=== PATIENT | female | born 1980 | race American Indian/Alaskan Native ===

== ENCOUNTER 2016-07-11 11:06 | Emergency (ER) | payer OTHER, SELFPAY ==
[2016-07-11 11:29] VITALS: BP 118/80
[2016-07-11 11:58] LABS: Bacteria,Urine 2+ /HPF (Negative); Bilirubin,Urine NEG (Negative); Blood,Urine LG (Negative); Ketones,Urine NEG (Negative); Leukocyte Esterase,Urine LG (Negative); Nitrite,Urine POS (Negative); Urobilinogen,Urine < 2.0 mg/dL (<2.0)
[2016-07-11 12:00] LABS: RBC,Urine > 182.0 /HPF (0.0-6.0); WBC,Urine > 182.0 /HPF (0.0-6.0)
[2016-07-11] MEDS ORDERED: ROCEPHIN IM ONE (12:49)
[2016-07-11] MEDS ORDERED: XYLOCAINE 1% MPF 5 mL INFILTRATI ONE (12:49)
[2016-07-11] MEDS ORDERED: ZITHROMAX PO ONE (12:49)
[2016-07-11] MEDS ORDERED: MOTRIN PO ONE (12:49)
--- NOTE | 2016-07-11 12:52 | Emergency Department Report ---
HPI - General Chief Complaint: Urogenital-Female Time Seen by Provider: 07/11/16 12:19 - HPI HPI: She is a 35-year-old female presents to ED complaining of burning with urination and mild low pelvic cramping 1 day. Patient states she started having burning type pain with urination yesterday. Patient denies vaginal discharge or bleeding. Patient states she had unprotected intercourse on Sunday with partner of unknown status. Patient states that since her period as 06/23/2016 and was regular. Patient denies contraceptive use. Or any other medication use other than blood pressure meds. Patient denies fevers/chills/nausea/vomiting/abdominal pain/chest pain shortness of breath or any other problems. ED Past Medical Hx - Past Medical History Previous Medical History?: Yes Hx Hypertension: Yes Hx GERD: Yes Hx Asthma: Yes (bronchitis) Additional medical history: reflux, recurrent bronchitis - Surgical History Past Surgical History?: No - Social History Smoking Status: Current Every Day Smoker Substance Use Type: Alcohol, Marijuana, Prescribed - Medications Home Medications: Home Medications Medication Instructions Recorded Confirmed Last Taken Type Lisinopril [Zestril TAB] 20 mg PO QDAY #30 tablet 08/09/15 01/19/16 Unknown Rx oxyCODONE /ACETAMINOPHEN [Percocet 1 tab PO Q8HR PRN #20 tablet 01/27/16 Unknown Rx 5/325] Ibuprofen [Motrin 800 MG tab] 800 mg PO TID #20 tablet 07/11/16 Unknown Rx metroNIDAZOLE [Flagyl] 500 mg PO ONCE #4 tab 07/11/16 Unknown Rx ED Review of Systems ROS: Stated complaint: BURNING/SPOTTING/CRAMPING IN VAG AREA Other details as noted in HPI Constitutional: denies: chills, fever Eyes: denies: eye pain, eye discharge, vision change ENT: denies: ear pain, throat pain, dental pain, hearing loss Respiratory: denies: cough, shortness of breath, wheezing Cardiovascular: denies: chest pain, palpitations Endocrine: no symptoms reported Gastrointestinal: denies: abdominal pain, nausea, vomiting, diarrhea Genitourinary: denies: urgency, dysuria, frequency, hematuria, discharge Musculoskeletal: denies: back pain, joint swelling, arthralgia Skin: denies: rash, lesions Neurological: denies: headache, weakness, numbness, paresthesias, confusion Psychiatric: denies: anxiety, depression Hematological/Lymphatic: denies: easy bleeding, easy bruising Physical Exam - Physical Exam Vital Signs: Vital Signs 07/11/16 11:26 Temperature 98.4 F Pulse Rate 83 Respiratory 20 Rate Blood Pressure 118/80 O2 Sat by Pulse 98 Oximetry Physical Exam: GENERAL: Alert and oriented x3, no apparent distress, Normal Gait, atraumatic. HEAD: Head is normocephalic and a-traumatic. EYES: Extra ocular muscles are intact. Pupils are equal, round, and reactive to light and accommodation. LUNGS: Symetrical with respiration, No wheezing, no rales or crackles, CTAB. HEART: S1, S2 present, regular rate and rhythm without murmur, no rubs, no gallops. ABDOMEN: No organomegaly was noted,Positive bowel sounds, soft, and non- distended. Nontender to palpation on all Quadrants, NO CVA tenderness. GENITOURINARY: External genitalia without erythema, exudate or discharge. Vaginal vault is without discharge. Cervix is of normal color without lesion. Cervical os is closed. No bleeding noted. Uterus is noted to be of normal size and nontender. No cervical motion tenderness. No masses are palpated. The adnexa are without masses or tenderness. NEUROLOGIC: No focal Deficit, Cranial nerves II through XII are grossly intact. PSYCHIATRIC: Mood is congruent with affect, denies suicidal or homicidal ideations. SKIN: Warm and dry, No lesions, No ulceration or induration present. ED Course Vital Signs 07/11/16 11:26 Temperature 98.4 F Pulse Rate 83 Respiratory 20 Rate Blood Pressure 118/80 O2 Sat by Pulse 98 Oximetry ED Medical Decision Making - Medical Decision Making 35-year-old female presents with urinary tract infection/STD exposure. ED course: Patient received Rocephin 250 mg IM, 1 g azithromycin. Urinalysis, urine , gonorrhea and chlamydia ordered. Urine test negative urinalysis shows elevated WBCs with RBCs, bacteria Findings suggest urinary tract infection or a STD. Patient was empirically treated and discussed findings with patient. Discussed the patient will follow up with her [facility] doctor. Discussed home medication for urinary tract infection and treatment for trichomoniasis. Vital signs are normal patient is in no acute distress. She apparently states she understands and will follow-up. Critical care attestation.: If time is entered above; I have spent that time in minutes in the direct care of this critically ill patient, excluding procedure time. ED Disposition Clinical Impression: Exposure to STD UTI (urinary tract infection) Qualifiers: Urinary tract infection type: acute cystitis Hematuria presence: with hematuria Qualified Code(s): N30.01 - Acute cystitis with hematuria Disposition: DISCHARGED TO HOME OR SELFCARE Is pt being admited?: No Does the pt Need Aspirin: No Condition: Stable Instructions: Sexually Transmitted Diseases (ED), Safe Sex (ED), Urinary Tract Infection in Women (ED), Dysuria (ED) Additional Instructions: Follow-up with her [facility] doctor for further STD testing. Particular medication as prescribed. If worsening symptoms return to ED. Prescriptions: Ibuprofen [Motrin 800 MG tab] 800 mg PO TID #20 tablet metroNIDAZOLE [Flagyl] 500 mg PO ONCE #4 tab Referrals: PRIMARY CAREMD [Primary Care Provider] - 3-5 Days FELIX ORTIZ MD [Referring] - 3-5 Days [facility] [Outside] - 3-5 Days [facility] [Outside] - 3-5 Days [facility] [Outside] - 3-5 Days Forms: Work/School Release Form(ED) Time of Disposition: 12:51
== END 2016-07-11 13:35 | disposition home or self-care (01) ==
LOC: ED 11:06
DX: N30.01 Acute cystitis with hematuria (principal); Z20.2 Contact with and (suspected) exposure to infections with a predominantly sexual mode of transmission; I10 Essential (primary) hypertension; K21.9 Gastro-esophageal reflux disease without esophagitis; J45.909 Unspecified asthma, uncomplicated; F17.200 Nicotine dependence, unspecified, uncomplicated
CPT/HCPCS: 81001; 81025; 96372; 99284; J0696

== ENCOUNTER 2016-11-17 08:08 | Outpatient (CLI) | payer OTHER ==
[2016-11-17 09:41] LABS: Blood Urea Nitrogen 22 mg/dL (7-17)
[2016-11-17] MEDS ORDERED: NACL ONE (10:52)
--- NOTE | 2016-11-17 12:59 | Cat Scan Report ---
CT ABDOMEN AND PELVIS WITH CONTRAST INDICATION: LUQ abdominal pain. COMPARISON: 01/20/2016. FINDINGS: Abdomen and pelvis CT performed following oral contrast and intravenous administration of 100 cc of Omnipaque 300. LUNG BASES: Nonspecific distal esophageal wall prominence/thickening, not excluded for gastroesophageal reflux and/or hiatal hernia, amongst others. Interval resolution of bibasilar atelectasis and left pleural effusion. ABDOMEN: Significant interval improvement of pancreatitis related changes in the upper abdomen with an approximately 5 cm hypodense pseudocyst centered at the pancreatic neck now remaining, axial image 102, series 2. Small 0.9 cm hypodensity towards the pancreatic tail also questioned, axial image 92. Few small peripancreatic lymph nodes with the largest gastrohepatic node approximately 1.1 x 0.7 cm, axial image 70, series 2. No abnormal pancreatic duct dilation. Liver, spleen, gallbladder, adrenals, aorta, IVC and the left kidney within normal limits. Moderate right hydroureteronephrosis now seen, extending into the pelvis. Left upper quadrant/perigastric collaterals. Opacified GI tract nonobstructive. Mild colonic stool admixed with contrast. Small midline ventral hernia noted approximately 3.5 cm above the umbilicus, containing fat and now also few small mesenteric collateral vessels as on axial image 137, series 2 with a transverse neck of 0.9 cm. PELVIS: Nonopacified right distal ureter difficult to accurately follow, though felt compressed about the right adnexa/ovary that measures about 4.5 x 3.1 cm, axial image 50, series 4 with an approximately 2 cm intrinsic possible corpus luteum. Rectosigmoid containing stool also noted coursing adjacent in this region. Uterus, left adnexa/ovary and the urinary bladder within normal limits. No free fluid or significant adenopathy. Stable sclerosis along iliac aspect of left SI joint. CONCLUSION: 1. New moderate right hydroureteronephrosis with nonopacified right distal ureter felt compressed in the lower right hemipelvis, as detailed above. 2. Resolving post pancreatitis changes with pancreatic neck/proximal body predominant pseudocyst now remaining, as above. 3. Various other incidental findings, including distal esophageal prominence/thickening, small supraumbilical midline ventral hernia, interval clearing of the lung bases and resolution of ascites, amongst others, as above. Thank you for the opportunity to participate in this patient's care.
== END 2016-11-17 08:09 | disposition home or self-care (01) ==
LOC: CT 08:08
PROVIDERS: ATTEND Internal Medicine Gastroenterology
DX: K86.2 Cyst of pancreas (principal); K85.90 Acute pancreatitis without necrosis or infection, unspecified; N13.30 Unspecified hydronephrosis; K43.9 Ventral hernia without obstruction or gangrene; I10 Essential (primary) hypertension; J45.909 Unspecified asthma, uncomplicated; F17.200 Nicotine dependence, unspecified, uncomplicated
CPT/HCPCS: 36415; 74177; 82565; 84520; Q9967

== ENCOUNTER 2016-12-12 02:56 | Emergency (ER) | payer OTHER ==
[2016-12-12 03:24] VITALS: BP 154/88
--- NOTE | 2016-12-12 04:36 | Emergency Department Report ---
ED Female HPI - General Chief complaint: Urogenital-Female Stated complaint: BURNING & SPOTTING FROM VAGINA Time Seen by Provider: 12/12/16 04:28 Source: patient, family Mode of arrival: Ambulatory Limitations: No Limitations - History of Present Illness Initial comments: This is a 35-year-old female nontoxic, well nourished in appearance, no acute signs of distress presents to the ED complaining of dysuria 2 days. Patient stated at the end of her urine she developed slight bleeding at the end of the urinary stream. Patient denies vaginal discharge. Patient denies any painful urination. Patient is a burning sensation when she urinates. Patient denies any fever, chills, back pain, nausea, vomiting, abdominal pain, pelvic pain, stiff neck, headache, chest pain or shortness breath. Patient denies any allergies. Past medical history includes asthma, GERD, and hypertension. MD Complaint: dysuria -: Gradual, days(s) (2) Radiation: non-radiating Severity: mild Severity scale (0 -10): 5 Quality: burning Consistency: constant Improves with: none Worsens with: urination Are you Now?: No Last Menstrual Period: 11/19/16 EDC: 08/26/17 Associated Symptoms: dysuria, hematuria. denies: vaginal discharge, vaginal bleeding, abdominal pain, nausea/vomiting, fever/chills, headaches, loss of appetite, rash, seizure, shortness of breath, syncope, weakness - Related Data Sexually active: No Previous Rx's Medication Instructions Recorded Last Taken Type Lisinopril [Zestril TAB] 20 mg PO QDAY #30 tablet 08/09/15 Unknown Rx oxyCODONE /ACETAMINOPHEN [Percocet 1 tab PO Q8HR PRN #20 tablet 01/27/16 Unknown Rx 5/325] Ibuprofen [Motrin 800 MG tab] 800 mg PO TID #20 tablet 07/11/16 Unknown Rx metroNIDAZOLE [Flagyl] 500 mg PO ONCE #4 tab 07/11/16 Unknown Rx Sulfamethoxazole/Trimethoprim 1 each PO BID #14 tablet 12/12/16 Unknown Rx [Bactrim DS TAB] Allergies Allergy/AdvReac Type Severity Reaction Status Date / Time No Known Allergies Allergy Verified 01/23/14 08:59 ED Review of Systems ROS: Stated complaint: BURNING & SPOTTING FROM VAGINA Other details as noted in HPI Constitutional: denies: chills, fever Eyes: denies: eye pain, eye discharge, vision change ENT: denies: ear pain, throat pain Respiratory: denies: cough, shortness of breath, wheezing Cardiovascular: denies: chest pain, palpitations Endocrine: no symptoms reported Gastrointestinal: denies: abdominal pain, nausea, diarrhea Genitourinary: dysuria. denies: urgency, discharge Musculoskeletal: denies: back pain, joint swelling, arthralgia Skin: denies: rash, lesions Neurological: denies: headache, weakness, paresthesias Psychiatric: denies: anxiety, depression Hematological/Lymphatic: denies: easy bleeding, easy bruising ED Past Medical Hx - Past Medical History Hx Hypertension: Yes Hx GERD: Yes Hx Asthma: Yes (bronchitis) Additional medical history: reflux, recurrent bronchitis - Surgical History Past Surgical History?: No - Social History Smoking Status: Current Some Day Smoker Substance Use Type: None - Medications Home Medications: Home Medications Medication Instructions Recorded Confirmed Last Taken Type Lisinopril [Zestril TAB] 20 mg PO QDAY #30 tablet 08/09/15 01/19/16 Unknown Rx oxyCODONE /ACETAMINOPHEN [Percocet 1 tab PO Q8HR PRN #20 tablet 01/27/16 Unknown Rx 5/325] Ibuprofen [Motrin 800 MG tab] 800 mg PO TID #20 tablet 07/11/16 Unknown Rx metroNIDAZOLE [Flagyl] 500 mg PO ONCE #4 tab 07/11/16 Unknown Rx Sulfamethoxazole/Trimethoprim 1 each PO BID #14 tablet 12/12/16 Unknown Rx [Bactrim DS TAB] ED Physical Exam - General Limitations: No Limitations General appearance: alert, in no apparent distress - Head Head exam: Present: atraumatic, normocephalic, normal inspection - Eye Eye exam: Present: normal appearance, PERRL, EOMI. Absent: scleral icterus, conjunctival injection, nystagmus, periorbital swelling, periorbital tenderness Pupils: Present: normal accommodation - ENT ENT exam: Present: normal exam, normal orophraynx, mucous membranes moist, TM's normal bilaterally, normal external ear exam - Neck Neck exam: Present: normal inspection, full ROM. Absent: tenderness, meningismus, lymphadenopathy, thyromegaly - Respiratory Respiratory exam: Present: normal lung sounds bilaterally. Absent: respiratory distress, wheezes, rales, rhonchi, stridor, chest wall tenderness, accessory muscle use, decreased breath sounds, prolonged expiratory - Cardiovascular Cardiovascular Exam: Present: regular rate, normal rhythm, normal heart sounds. Absent: bradycardia, tachycardia, irregular rhythm, systolic murmur, diastolic murmur, rubs, gallop - GI/Abdominal GI/Abdominal exam: Present: soft, normal bowel sounds. Absent: distended, tenderness, guarding, rebound, rigid, diminished bowel sounds - Rectal Rectal exam: Present: deferred - Extremities Exam Extremities exam: Present: normal inspection, full ROM, normal capillary refill. Absent: tenderness, pedal edema, joint swelling, calf tenderness - Back Exam Back exam: Present: normal inspection, full ROM. Absent: tenderness, CVA tenderness (R), CVA tenderness (L), muscle spasm, paraspinal tenderness, vertebral tenderness, rash noted - Neurological Exam Neurological exam: Present: alert, oriented X3, CN II-XII intact, normal gait, reflexes normal - Psychiatric Psychiatric exam: Present: normal affect, normal mood - Skin Skin exam: Present: warm, dry, intact, normal color. Absent: rash ED Course Vital Signs 12/12/16 03:13 Temperature 98.9 F Pulse Rate 70 Respiratory 16 Rate Blood Pressure 154/88 Blood Pressure 154/88 [Left] O2 Sat by Pulse 100 Oximetry - Reevaluation(s) Reevaluation #1: 12/12/16 04:34 Patient is speaking in full sentences with no signs of distress noted. Critical care attestation.: If time is entered above; I have spent that time in minutes in the direct care of this critically ill patient, excluding procedure time. ED Disposition Clinical Impression: UTI (urinary tract infection) Qualifiers: Urinary tract infection type: site unspecified Hematuria presence: with hematuria Qualified Code(s): N39.0 - Urinary tract infection, site not specified Disposition: - TO HOME OR SELFCARE Is pt being admited?: No Does the pt Need Aspirin: No Condition: Stable Instructions: Sulfamethoxazole/Trimethoprim (By mouth), Urinary Tract Infection in Women (ED) Additional Instructions: Follow-up with a primary care doctor in 3-5 days or if symptoms worsen and continue return to emergency room as soon as possible possible. Prescriptions: Sulfamethoxazole/Trimethoprim [Bactrim DS TAB] 1 each PO BID #14 tablet Referrals: SANDRA RODRIGUEZ MD [Primary Care Provider] - 3-5 Days BRYANT DSOUZA MD [Staff Physician] - 3-5 Days [facility] [Outside] - 3-5 Days [facility] [Outside] - 3-5 Days Forms: Work/School Release Form(ED)
[2016-12-12 04:38] LABS: Bilirubin,Urine NEG (Negative); Blood,Urine LG (Negative); Ketones,Urine NEG (Negative); Leukocyte Esterase,Urine LG (Negative); Nitrite,Urine NEG (Negative); RBC,Urine > 182.0 /HPF (0.0-6.0); Urobilinogen,Urine < 2.0 mg/dL (<2.0)
== END 2016-12-12 05:04 | disposition home or self-care (01) ==
LOC: ED 02:56
DX: N39.0 Urinary tract infection, site not specified (principal); I10 Essential (primary) hypertension; K21.9 Gastro-esophageal reflux disease without esophagitis; J45.909 Unspecified asthma, uncomplicated; F17.200 Nicotine dependence, unspecified, uncomplicated
CPT/HCPCS: 81001; 81025; 99282

== ENCOUNTER 2016-12-25 19:06 | Emergency (ER) | payer OTHER ==
[2016-12-25 19:21] VITALS: BP 134/91
[2016-12-25 20:17] LABS: Anion Gap 17 mmol/L; BUN/Creatinine Ratio 24; Blood Urea Nitrogen 26 mg/dL (7-17); Calcium 9.4 mg/dL (8.4-10.2); Carbon Dioxide 25 mmol/L (22-30); Chloride 100.5 mmol/L (98-107); Glucose 80 mg/dL (65-100); Potassium 4.2 mmol/L (3.6-5.0); Sodium 138 mmol/L (137-145)
[2016-12-25 20:31] LABS: Basophils % (Auto) 1.1 % (0.0-1.8); Eosinophils % (Auto) 2.1 % (0.0-4.3); Hematocrit 34.8 % (30.3-42.9); Hemoglobin 11.5 gm/dl (10.1-14.3); Mean Corpuscular HGB Conc 33 % (30-34); Mean Corpuscular Hemoglobin 33 pg (28-32); Mean Corpuscular Volume 101 fl (79-97); Platelet Count 261 K/mm3 (140-440); Red Blood Count 3.45 M/mm3 (3.65-5.03); Red Cell Distribution Width 12.9 % (13.2-15.2); White Blood Count 7.6 K/mm3 (4.5-11.0)
[2016-12-25 22:06] LABS: Bilirubin,Urine NEG (Negative); Blood,Urine NEG (Negative); Ketones,Urine NEG (Negative); Leukocyte Esterase,Urine NEG (Negative); Mucus,Urine FEW /HPF; Nitrite,Urine NEG (Negative); Protein,Urine <15 mg/dL mg/dL (Negative); Urobilinogen,Urine < 2.0 mg/dL (<2.0); WBC,Urine < 1.0 /HPF (0.0-6.0)
--- NOTE | 2016-12-26 07:44 | XRay Report ---
ROUTINE CHEST, TWO VIEWS: HISTORY: Short of breath. The trachea, heart, mediastinal contour, lung petty and bony thorax are unremarkable. IMPRESSION: Unremarkable chest x-ray.
== END 2016-12-25 21:48 | disposition left against medical advice (07) ==
LOC: ED 19:06
DX: R07.9 Chest pain, unspecified (principal); Z53.21 Procedure and treatment not carried out due to patient leaving prior to being seen by health care provider
CPT/HCPCS: 36415; 71020; 80048; 81001; 84484; 84703; 85025; 93005; 93010

== ENCOUNTER 2017-01-27 21:36 | Emergency (ER) | payer OTHER ==
[2017-01-27 22:20] LABS: Basophils % (Auto) 0.7 % (0.0-1.8); Eosinophils % (Auto) 2.8 % (0.0-4.3); Hematocrit 35.5 % (30.3-42.9); Hemoglobin 11.7 gm/dl (10.1-14.3); Mean Corpuscular HGB Conc 33 % (30-34); Mean Corpuscular Hemoglobin 33 pg (28-32); Mean Corpuscular Volume 100 fl (79-97); Platelet Count 245 K/mm3 (140-440); Red Blood Count 3.54 M/mm3 (3.65-5.03); Red Cell Distribution Width 13.1 % (13.2-15.2); White Blood Count 8.7 K/mm3 (4.5-11.0)
[2017-01-27 22:32] LABS: Alanine Aminotransferase 78 units/L (7-56); Albumin 4.1 g/dL (3.9-5); Albumin/Globulin Ratio 1.1 %; Alkaline Phosphatase 98 units/L (35-129); Anion Gap 18 mmol/L; BUN/Creatinine Ratio 16; Blood Urea Nitrogen 14 mg/dL (7-17); Calcium 9.2 mg/dL (8.4-10.2); Carbon Dioxide 27 mmol/L (22-30); Chloride 93.4 mmol/L (98-107); Glucose 120 mg/dL (65-100); Potassium 3.1 mmol/L (3.6-5.0); Sodium 135 mmol/L (137-145); Total Protein 7.7 g/dL (6.3-8.2)
[2017-01-27 22:43] LABS: Lipase 579 units/L (13-60)
[2017-01-27 22:55] LABS: Bilirubin,Urine NEG (Negative); Blood,Urine NEG (Negative); Ketones,Urine NEG (Negative); Leukocyte Esterase,Urine NEG (Negative); Nitrite,Urine NEG (Negative)
[2017-01-27 23:01] LABS: Mucus,Urine FEW /HPF
--- NOTE | 2017-01-28 06:06 | Cat Scan Report ---
FINAL REPORT EXAM: CT ABDOMEN PELVIS WO CON HISTORY: flank pain blood in urine TECHNIQUE: CT images obtained through the Abdomen and Pelvis without contrast. Transaxial,coronal and sagittal reformats are provided. PRIORS: 01/19/2016, MRI 01/20/2016 FINDINGS: Imaged intrathoracic contents are unremarkable. There is edema and stranding surrounding the pancreatic head and uncinate. Within the proximal pancreatic body on axial series 3, image 50 there is a 5.5 x 4.3 x 5.8 Centimeter rim enhancing fluid-filled structure. Remainder of the pancreatic parenchyma is uniformly enhancing. The liver, gallbladder, spleen and adrenal glands are unremarkable. There is moderate right hydroureteronephrosis with right periureteral stranding extending into the area of pancreatic inflammation an and transitioning to normal caliber ureter more distally. No nephrolithiasis. No left-sided hydroureteronephrosis. There is layering retroperitoneal and right lower quadrant fluid. Hollow enteric organs are normal in course and caliber. Appendix is normal. No pneumoperitoneum. Aorta is normal in course and caliber. Superficial soft tissues are unremarkable. No acute or aggressive appearing skeletal findings. IMPRESSION: Inflammatory stranding and edema surrounding the pancreatic head and uncinate surround the right ureter, which is dilated proximally and results in moderate right hydronephrosis. No obstructing nephrolithiasis. A focal fluid collection within the pancreatic body measures 5.5 x 4.3 x 5.8 cm. Differential diagnosis includes pancreatic abscess versus pseudocyst from prior pancreatitis demonstrated on [address] Canales discussed findings with Dr. Cuevas at 0458 central Time on 01/28/2017 immediately following the examination.
[2017-01-28 06:37] VITALS: BP 123/90
[2017-01-28] MEDS ORDERED: SUBLIMAZE IV ONE (07:08)
[2017-01-28] MEDS ORDERED: ZOFRAN IV ONE (07:08)
[2017-01-28] MEDS ORDERED: NACL 0.9% 1000 ML 1,000 ML IV ONE (07:08)
--- NOTE | 2017-01-28 07:13 | Emergency Department Report ---
HPI - General Chief Complaint: Abdominal Pain Time Seen by Provider: 01/28/17 06:58 - HPI HPI: Room 24 The patient is a 36-year-old female presenting with chief complaint of abdominal pain. Patient states yesterday she developed sharp umbilical abdominal pain. The patient states last night after eating food she again developed sharp pain in the midepigastric region radiating to her back. Patient is to nausea but denies vomiting, diarrhea or fever. The patient gives her pain a score of 10/10 Location: Abdomen Duration: Since yesterday Quality: Sharp Severity:10/10 Modifying factors: [see above] Context: [see above] Mode of transportation: Unknown ED Past Medical Hx - Past Medical History Hx Hypertension: Yes Hx GERD: Yes Hx Asthma: Yes (bronchitis) Additional medical history: reflux, recurrent bronchitis, pancreatitis (2016) - Surgical History Past Surgical History?: No - Family History Family history: no significant - Social History Smoking Status: Current Some Day Smoker Substance Use Type: None (denies illicit drug use), Alcohol (occasional) - Medications Home Medications: Home Medications Medication Instructions Recorded Confirmed Last Taken Type Lisinopril [Zestril TAB] 20 mg PO QDAY #30 tablet 08/09/15 01/19/16 Unknown Rx oxyCODONE /ACETAMINOPHEN [Percocet 1 tab PO Q8HR PRN #20 tablet 01/27/16 Unknown Rx 5/325] Ibuprofen [Motrin 800 MG tab] 800 mg PO TID #20 tablet 07/11/16 Unknown Rx metroNIDAZOLE [Flagyl] 500 mg PO ONCE #4 tab 07/11/16 Unknown Rx Sulfamethoxazole/Trimethoprim 1 each PO BID #14 tablet 12/12/16 Unknown Rx [Bactrim DS TAB] ED Review of Systems ROS: Stated complaint: ABD AND LOWER BACK PAIN Other details as noted in HPI Comment: All other systems reviewed and negative Constitutional: denies: fever Eyes: denies: eye pain, eye discharge, vision change ENT: denies: ear pain, throat pain Respiratory: denies: cough, shortness of breath, wheezing Cardiovascular: denies: chest pain, palpitations Endocrine: no symptoms reported Gastrointestinal: abdominal pain, nausea. denies: vomiting, diarrhea Genitourinary: denies: urgency, dysuria, discharge Musculoskeletal: back pain. denies: joint swelling, arthralgia Skin: denies: rash, lesions Neurological: denies: headache, weakness, paresthesias Psychiatric: denies: anxiety, depression Hematological/Lymphatic: denies: easy bleeding, easy bruising Physical Exam - Physical Exam Vital Signs: Vital Signs 01/27/17 01/28/17 01/28/17 21:45 04:48 06:20 Temperature 99 F 98.2 F Pulse Rate 93 H 85 96 H Respiratory 16 18 Rate Blood Pressure 138/72 124/89 O2 Sat by Pulse 99 100 Oximetry 01/28/17 01/28/17 01/28/17 06:21 06:22 06:23 Temperature Pulse Rate 78 76 84 Respiratory 25 H 19 17 Rate Blood Pressure 113/88 113/88 O2 Sat by Pulse 99 99 Oximetry 01/28/17 01/28/17 01/28/17 06:25 06:27 06:29 Temperature Pulse Rate 74 70 72 Respiratory 11 L 11 L 12 Rate Blood Pressure 113/88 113/88 113/88 O2 Sat by Pulse 99 98 97 Oximetry 01/28/17 01/28/17 01/28/17 06:30 06:31 06:33 Temperature Pulse Rate 76 74 75 Respiratory 13 14 12 Rate Blood Pressure 123/90 123/90 123/90 O2 Sat by Pulse 97 99 97 Oximetry 01/28/17 01/28/17 06:37 06:49 Temperature 98.3 F Pulse Rate Respiratory 18 Rate Blood Pressure O2 Sat by Pulse 98 Oximetry Physical Exam: GENERAL: The patient is well-developed well-nourished female lying on stretcher not appearing to be in acute distress. [] HEENT: Normocephalic. Atraumatic. Extraocular motions are intact. Patient has moist mucous membranes. NECK: Supple. Trachea midline CHEST/LUNGS: Clear to auscultation. There is no respiratory distress noted. HEART/CARDIOVASCULAR: Regular. There is no tachycardia. There is no gallop rub or murmur. ABDOMEN: Abdomen is soft, with tenderness to palpation in the midepigastric and right upper quadrant. Patient has normal bowel sounds. There is no abdominal distention. SKIN: There is no rash. There is no edema. There is no diaphoresis. NEURO: The patient is awake, alert, and oriented. The patient is cooperative. The patient has normal speech MUSCULOSKELETAL: There is no evidence of acute injury. ED Course Vital Signs 01/27/17 01/28/17 01/28/17 21:45 04:48 06:20 Temperature 99 F 98.2 F Pulse Rate 93 H 85 96 H Respiratory 16 18 Rate Blood Pressure 138/72 124/89 O2 Sat by Pulse 99 100 Oximetry 01/28/17 01/28/17 01/28/17 06:21 06:22 06:23 Temperature Pulse Rate 78 76 84 Respiratory 25 H 19 17 Rate Blood Pressure 113/88 113/88 O2 Sat by Pulse 99 99 Oximetry 01/28/17 01/28/17 01/28/17 06:25 06:27 06:29 Temperature Pulse Rate 74 70 72 Respiratory 11 L 11 L 12 Rate Blood Pressure 113/88 113/88 113/88 O2 Sat by Pulse 99 98 97 Oximetry 01/28/17 01/28/17 01/28/17 06:30 06:31 06:33 Temperature Pulse Rate 76 74 75 Respiratory 13 14 12 Rate Blood Pressure 123/90 123/90 123/90 O2 Sat by Pulse 97 99 97 Oximetry 01/28/17 01/28/17 06:37 06:49 Temperature 98.3 F Pulse Rate Respiratory 18 Rate Blood Pressure O2 Sat by Pulse 98 Oximetry ED Medical Decision Making - Lab Data Result diagrams: 01/27/17 21:57 01/27/17 21:57 Laboratory Tests 01/27/17 01/27/17 01/27/17 21:57 21:57 21:57 WBC 8.7 RBC 3.54 L Hgb 11.7 Hct 35.5 MCV 100 H MCH 33 H MCHC 33 RDW 13.1 L Plt Count 245 Lymph % (Auto) 21.2 Dale % (Auto) 6.2 Eos % (Auto) 2.8 Baso % (Auto) 0.7 Lymph # 1.8 Dale # 0.5 Eos # 0.2 Baso # 0.1 Seg Neutrophils % 69.1 Seg Neutrophils # 6.0 Sodium 135 L Potassium 3.1 L Chloride 93.4 L Carbon Dioxide 27 Anion Gap 18 BUN 14 Creatinine 0.9 Estimated GFR > 60 BUN/Creatinine Ratio 16 Glucose 120 H Calcium 9.2 Total Bilirubin 2.30 H AST 354 H ALT 78 H Alkaline Phosphatase 98 Total Protein 7.7 Albumin 4.1 Albumin/Globulin Ratio 1.1 Lipase 579 H HCG, Qual Negative Urine Color Urine Turbidity Urine pH Ur Specific [place] Urine Protein Urine Glucose (UA) Urine Ketones Urine Blood Urine Nitrite Urine Bilirubin Urine Urobilinogen Ur Leukocyte Esterase Urine WBC (Auto) Urine RBC (Auto) U Epithel Cells (Auto) Amorphous Crystals Urine Mucus 01/27/17 Unknown WBC RBC Hgb Hct MCV MCH MCHC RDW Plt Count Lymph % (Auto) Dale % (Auto) Eos % (Auto) Baso % (Auto) Lymph # Dale # Eos # Baso # Seg Neutrophils % Seg Neutrophils # Sodium Potassium Chloride Carbon Dioxide Anion Gap BUN Creatinine Estimated GFR BUN/Creatinine Ratio Glucose Calcium Total Bilirubin AST ALT Alkaline Phosphatase Total Protein Albumin Albumin/Globulin Ratio Lipase HCG, Qual Urine Color [place] Urine Turbidity Clear Urine pH 7.0 Ur Specific [place] 1.026 Urine Protein 30 mg/dl Urine Glucose (UA) Neg Urine Ketones Neg Urine Blood Neg Urine Nitrite Neg Urine Bilirubin Neg Urine Urobilinogen 2.0 Ur Leukocyte Esterase Neg Urine WBC (Auto) 1.0 Urine RBC (Auto) 5.0 U Epithel Cells (Auto) 8.0 Amorphous Crystals 1+ Urine Mucus Few - Radiology Data Radiology results: report reviewed (CT abdomen and pelvis), image reviewed (CT abdomen and pelvis) ADDENDUM FINAL REPORT EXAM: CT ABDOMEN PELVIS WO CON HISTORY: flank pain blood in urine TECHNIQUE: CT images obtained through the Abdomen and Pelvis without contrast. Transaxial,coronal and sagittal reformats are provided. PRIORS: 01/19/2016, MRI 01/20/2016 FINDINGS: Imaged intrathoracic contents are unremarkable. There is edema and stranding surrounding the pancreatic head and uncinate. Within the proximal pancreatic body on axial series 3, image 50 there is a 5.5 x 4.3 x 5.8 Centimeter rim enhancing fluid-filled structure. Remainder of the pancreatic parenchyma is uniformly enhancing. The liver, gallbladder, spleen and adrenal glands are unremarkable. There is moderate right hydroureteronephrosis with right periureteral stranding extending into the area of pancreatic inflammation an and transitioning to normal caliber ureter more distally. No nephrolithiasis. No left-sided hydroureteronephrosis. There is layering retroperitoneal and right lower quadrant fluid. Hollow enteric organs are normal in course and caliber. Appendix is normal. No pneumoperitoneum. Aorta is normal in course and caliber. Superficial soft tissues are unremarkable. No acute or aggressive appearing skeletal findings. IMPRESSION: Inflammatory stranding and edema surrounding the pancreatic head and uncinate surround the right ureter, which is dilated proximally and results in moderate right hydronephrosis. No obstructing nephrolithiasis. A focal fluid collection within the pancreatic body measures 5.5 x 4.3 x 5.8 cm. Differential diagnosis includes pancreatic abscess versus pseudocyst from prior pancreatitis demonstrated on [address] Al discussed findings with Dr. Cuevas at 0458 central Time on 01/28/2017 immediately following the examination. ADDENDUM FINAL REPORT Addendum: Within the findings of the original report, pancreatic fluid collection measuring up to 5.8 cm is referred to as rim enhancing, however no contrast was administered so the enhancement characteristics of this fluid collection cannot be determined. Additionally, there is a fat containing periumbilical/ventral hernia measuring up to approximately 12 millimeters at the neck, which was not described in the original report. No changes to the impression of the original report. I apologize for any inconvenience associated with this addendum. Thank you for the opportunity to participate in the care of this patient. Addendum Transcribed By: DAVID Addendum Dictated By: MORAIMA AL MD Addendum Electronically Authenticated By: MORAIMA AL MD Addendum Signed Date/Time: 01/28/17206 DD/ TD/TT: 01/28/17 FINAL REPORT EXAM: CT ABDOMEN PELVIS WO CON HISTORY: flank pain blood in urine TECHNIQUE: CT images obtained through the Abdomen and Pelvis without contrast. Transaxial,coronal and sagittal reformats are provided. PRIORS: 01/19/2016, MRI 01/20/2016 FINDINGS: Imaged intrathoracic contents are unremarkable. There is edema and stranding surrounding the pancreatic head and uncinate. Within the proximal pancreatic body on axial series 3, image 50 there is a 5.5 x 4.3 x 5.8 Centimeter rim enhancing fluid-filled structure. Remainder of the pancreatic parenchyma is uniformly enhancing. The liver, gallbladder, spleen and adrenal glands are unremarkable. There is moderate right hydroureteronephrosis with right periureteral stranding extending into the area of pancreatic inflammation an and transitioning to normal caliber ureter more distally. No nephrolithiasis. No left-sided hydroureteronephrosis. There is layering retroperitoneal and right lower quadrant fluid. Hollow enteric organs are normal in course and caliber. Appendix is normal. No pneumoperitoneum. Aorta is normal in course and caliber. Superficial soft tissues are unremarkable. No acute or aggressive appearing skeletal findings. IMPRESSION: Inflammatory stranding and edema surrounding the pancreatic head and uncinate surround the right ureter, which is dilated proximally and results in moderate right hydronephrosis. No obstructing nephrolithiasis. A focal fluid collection within the pancreatic body measures 5.5 x 4.3 x 5.8 cm. Differential diagnosis includes pancreatic abscess versus pseudocyst from prior pancreatitis demonstrated on [address] Al discussed findings with Dr. Cuevas at 0458 central Time on 01/28/2017 immediately following the examination. Transcribed By: MB Dictated By: MORAIMA AL MD Electronically Authenticated By: MORAIMA AL MD Signed Date/Time: 01/28/17203 DD/ 3 TD/TT: 01/28/17203 - Differential Diagnosis pancreatitis, GERD, cholelithiasis, Critical care attestation.: If time is entered above; I have spent that time in minutes in the direct care of this critically ill patient, excluding procedure time. ED Disposition Clinical Impression: Pseudocyst of pancreas, Acute pancreatitis Disposition: OP ADMIT IP TO THIS HOSP Is pt being admited?: Yes Does the pt Need Aspirin: No Condition: Fair Instructions: Abdominal Pain (ED) Referrals: PRIMARY CARE, [Primary Care Provider] - 3-5 Days Time of Disposition: 07:15 (hospitalist paged)
[2017-01-28] MEDS ORDERED: TYLENOL PO PRN (07:19)
[2017-01-28] MEDS ORDERED: DILAUDID IV PRN (07:19)
[2017-01-28] MEDS ORDERED: ZOFRAN IV PRN (07:19)
[2017-01-28] MEDS ORDERED: DULCOLAX PR PRN (07:19)
[2017-01-28] MEDS ORDERED: MILK OF MAGNESIA PO PRN (07:19)
[2017-01-28] MEDS ORDERED: LIBRIUM PO PRN ×2 (07:23)
[2017-01-28] MEDS ORDERED: ATIVAN IV PRN ×2 (07:23)
--- NOTE | 2017-01-28 07:26 | Event Note ---
Date: 01/28/17 * Acute pancreatitis with possible pseudocyst * Etoh Abuse * Hypokalemia * Peritoneal Irritation * Transaminitis * HTN * GERD * Obese Patient left AMA prior to my examination.
[2017-01-28] MEDS ORDERED: KCL 20 MEQ in LACTATED RINGERS 1,000 ML IV SCH (07:30)
[2017-01-28] MEDS ORDERED: DUONEB *Not for PRN Use IH SCH (08:00)
[2017-01-28] MEDS ORDERED: 1: FOLVITE 1 MG, INFUVITE 10 ML, VITAMIN B-1 100 MG in NACL 0.9% 1000 ML 988.8 ML 2: NA IV SCH (08:00)
[2017-01-28] MEDS ORDERED: KCL 10MEQ/100ML 10 MEQ/100 ML BAG IV SCH (08:00)
== END 2017-01-28 08:28 | disposition left against medical advice (07) ==
LOC: ED 21:36
DX: K85.90 Acute pancreatitis without necrosis or infection, unspecified (principal); K86.3 Pseudocyst of pancreas; I10 Essential (primary) hypertension; K21.9 Gastro-esophageal reflux disease without esophagitis; F17.200 Nicotine dependence, unspecified, uncomplicated
CPT/HCPCS: 36415; 74176; 80053; 81001; 83690; 84703; 85025; 99284; J3411; J3480; J7030; J7120

== ENCOUNTER 2017-04-20 05:33 | Emergency (ER) | payer OTHER ==
[2017-04-20 05:56] VITALS: BP 121/78
[2017-04-20 06:18] LABS: Basophils # (Auto) 0.1 K/mm3 (0.0-0.1); Eosinophils # (Auto) 0.2 K/mm3 (0.0-0.4); Eosinophils % (Auto) 2.8 % (0.0-4.3); Hemoglobin 11.5 gm/dl (10.1-14.3); Lymphocytes # (Auto) 3.7 K/mm3 (1.2-5.4); Lymphocytes % (Auto) 50.6 % (13.4-35.0); Mean Corpuscular HGB Conc 34 % (30-34); Mean Corpuscular Hemoglobin 33 pg (28-32); Mean Corpuscular Volume 98 fl (79-97); Monocytes # (Auto) 0.5 K/mm3 (0.0-0.8); Monocytes % (Auto) 7.3 % (0.0-7.3); Platelet Count 250 K/mm3 (140-440); Red Blood Count 3.47 M/mm3 (3.65-5.03); Red Cell Distribution Width 13.2 % (13.2-15.2)
[2017-04-20 06:35] LABS: BUN/Creatinine Ratio 24; Blood Urea Nitrogen 29 mg/dL (7-17); Calcium 9.7 mg/dL (8.4-10.2); Hemolysis Index 6
--- NOTE | 2017-04-20 07:27 | XRay Report ---
FINAL REPORT PROCEDURE: XR CHEST ROUTINE 2V TECHNIQUE: PA and lateral chest radiographs were obtained. CPT 27004 HISTORY: SHILOH COMPARISON: No prior studies are available for comparison. FINDINGS: Heart: Normal. Mediastinum/Vessels: Normal. Lungs/Pleural space: Lungs are clear and expanded. There are no infiltrates, effusions or pneumothoraces.. Bony thorax: No acute osseous abnormality. Other: IMPRESSION: Normal heart and lungs..
== END 2017-04-20 13:40 | disposition left against medical advice (07) ==
LOC: ED 05:33
DX: R07.9 Chest pain, unspecified (principal); Z53.21 Procedure and treatment not carried out due to patient leaving prior to being seen by health care provider
CPT/HCPCS: 36415; 71046; 80048; 84484; 84703; 85025; 93005; 93010